=== PATIENT | male | born 1975 | race Caucasian/White ===

== ENCOUNTER 2018-02-27 08:43 | Outpatient (CLI) | payer BC, SELFPAY ==
[2018-02-27 09:55] LABS: Anion Gap 10.6 mmol/L (3-11); BUN 23 mg/dL (7-18); CO2 28.4 mmol/L (21.0-32.0); CREATININE 0.98 mg/dL (0.70-1.30); Calcium 9.3 mg/dL (8.5-10.1); Chloride 101 mmol/L (98-107); Glucose 92 mg/dL (70-100); Potassium 4.7 mmol/L (3.5-5.1); Sodium 140 mmol/L (136-145)
== END 2018-02-27 09:03 ==
PROVIDERS: PCP Internal Medicine; Visit Provider Internal Medicine
DX: I50.23 Acute on chronic systolic (congestive) heart failure (principal); I38 Endocarditis, valve unspecified
CPT/HCPCS: 36415; 80048

== ENCOUNTER 2020-01-02 12:59 | Outpatient (REF) | payer BC, SELFPAY ==
[2020-01-02 13:28] LABS: Hemoglobin A1C 5.9 % (3.8-5.6)
[2020-01-02 13:30] LABS: CREATININE 0.92 mg/dL (0.70-1.30); Calculated LDL 120 mg/dL (<100); Cholesterol 216 mg/dL (<200); HDL Cholesterol 33 mg/dL (40-60); Potassium 4.4 mmol/L (3.5-5.1); Triglyceride 316 mg/dL (<150)
== END 2020-01-02 13:19 ==
LOC: LBN 12:59
PROVIDERS: PCP Nurse Practitioner; Visit Provider Nurse Practitioner
DX: I10 Essential (primary) hypertension (principal); Z13.6 Encounter for screening for cardiovascular disorders; Z13.1 Encounter for screening for diabetes mellitus
CPT/HCPCS: 80061; 82565; 83036; 84132

== ENCOUNTER 2021-03-02 10:49 | Outpatient (REF) | payer BC, SELFPAY ==
[2021-03-02 15:21] LABS: Abs Immature Grans 0.04 10^3/uL (0.0-0.06); Absolute Basophil Count 0.04 10^3/uL (0.0-0.2); Absolute Eosinophil Count 0.16 10^3/uL (0.0-0.7); Absolute Lymphocyte Count 1.87 10^3/uL (1.2-3.4); Absolute Monocyte Count 0.44 10^3/uL (0.1-0.8); Absolute Neutrophil Count 4.66 10^3/uL (1.2-6.7); Anion Gap 7.1 mmol/L (3-11); BUN 13 mg/dL (7-18); Basophils % 0.6; CO2 27.9 mmol/L (21.0-32.0); CREATININE 0.8 mg/dL (0.70-1.30); Calcium 8.8 mg/dL (8.5-10.1); Chloride 104 mmol/L (98-107); Eosinophils % 2.2; Glucose 90 mg/dL (74-106); HCT 44.8 % (40.0-50.0); HGB 14.3 g/dL (13.5-17.5); Immature Grans % 0.6; Lymphocytes % 25.9; MCH 27.7 pg (27.0-33.0); MCHC 31.9 % (32.0-36.0); MCV 86.7 fL (80-95); MPV 12.3 fL (8.0-11.0); Monocytes % 6.1; Neutrophils % 64.6; Nucleated RBC 0 %; Platelet Count 216 10^3/uL (130-400); Potassium 4.3 mmol/L (3.5-5.1); RBC 5.17 10^6/uL (4.36-5.78); RDW 13.6 % (11.8-14.1); RDW-SD 43.8 fL; Sodium 139 mmol/L (136-145); WBC 7.21 10^3/uL (4.4-10.8)
[2021-03-02 16:22] LABS: Bilirubin Negative (Negative); Blood Large (Negative); Clarity Cloudy (Clear); Glucose Negative (Negative); Ketones Negative (Negative); Leukocyte Esterase Negative (Negative); Nitrite Negative (Negative); Urobilinogen 0.2 EU/dL (Up TO 0.2)
[2021-03-02 17:00] LABS: RBC >50 HPF (0-2)
[2021-03-02 17:01] LABS: C & S Indicated? Yes
== END 2021-03-02 10:50 | disposition home or self-care (01) ==
LOC: LBN 10:49
PROVIDERS: PCP Nurse Practitioner; Visit Provider Nurse Practitioner Family
DX: R31.9 Hematuria, unspecified (principal); I10 Essential (primary) hypertension; Z79.01 Long term (current) use of anticoagulants; Z95.2 Presence of prosthetic heart valve
CPT/HCPCS: 80048; 81003; 81015; 85025; 87086

== ENCOUNTER 2021-05-11 01:39 | Outpatient (CLI) | payer BC, SELFPAY ==
[2021-05-11 14:43] LABS: Hemoglobin A1C 5.4 % (<5.7)
[2021-05-11 15:01] LABS: CREATININE 0.8 mg/dL (0.70-1.30); Calculated LDL 152 mg/dL (<100); Cholesterol 230 mg/dL (<200); HDL Cholesterol 40 mg/dL (40-60); Potassium 4.5 mmol/L (3.5-5.1); Triglyceride 191 mg/dL (<150)
== END 2021-05-11 01:40 | disposition home or self-care (01) ==
LOC: LBO 01:39
PROVIDERS: PCP Nurse Practitioner; Visit Provider Nurse Practitioner
DX: I10 Essential (primary) hypertension (principal); R73.03 Prediabetes; E78.2 Mixed hyperlipidemia
CPT/HCPCS: 36415; 80061; 82565; 83036; 84132

== ENCOUNTER 2021-06-10 11:53 | Emergency (ER) | payer BC, SELFPAY ==
[2021-06-10 12:01] VITALS: BP 181/91; PULSE 63; RESP 18; TEMP 36.5; O2SAT 97
--- NOTE | 2021-06-10 12:30 | DI.RAD_ITS ---
Exam(s) XR ABDOMEN FLAT UPRIGHT EXAM: XR ABDOMEN FLAT UPRIGHT CLINICAL HISTORY: KNOWN RT URETEROLITHIASIS, PAIN. TECHNIQUE: 2D digital imaging was performed. COMPARISON: US US RENAL from 03/07/2021 FINDINGS: Supine and upright views the abdomen reveal no bowel obstruction or free air. Visualized lung bases are clear in this patient with sternotomy wires and prosthetic cardiac valve. There are no obvious r adiopaque calcifications seen over the kidneys nor along the course of the ureters. Regional bones a ppear unremarkable. IMPRESSION: DATA REPOSITORY: RADIATION DOSE DELIVERED:
[2021-06-10] MEDS: Normal Saline 1,000 ML 125 ML IV (12:35)
[2021-06-10 12:38] LABS: Bilirubin Negative (Negative); Blood Large (Negative); Clarity Sl Cloudy (Clear); Glucose Negative (Negative); Ketones Negative (Negative); Leukocyte Esterase Negative (Negative); Nitrite Negative (Negative); Urobilinogen 0.2 EU/dL (Up TO 0.2); pH 5.5 (5-8)
[2021-06-10] MEDS: Ketorolac 30 MG/ML VIAL IVP (12:41)
[2021-06-10 12:47] LABS: Bacteria Negative HPF (Negative); Epithelial Cells Rare HPF (Negative); RBC 20-50 HPF (0-2); WBC 0-2 HPF (0-5)
[2021-06-10 12:48] LABS: C & S Indicated? No; Casts Negative LPF (Negative); Crystals Rare Calcium Oxalate HPF (Negative); Mucus Negative (Negative)
[2021-06-10 12:58] LABS: Abs Immature Grans 0.04 10^3/uL (0.0-0.06); Absolute Basophil Count 0.04 10^3/uL (0.0-0.2); Absolute Eosinophil Count 0.17 10^3/uL (0.0-0.7); Absolute Lymphocyte Count 2.07 10^3/uL (1.2-3.4); Absolute Monocyte Count 0.61 10^3/uL (0.1-0.8); Absolute Neutrophil Count 6.03 10^3/uL (1.2-6.7); Basophils % 0.4; Eosinophils % 1.9; HCT 45.2 % (40.0-50.0); HGB 14.6 g/dL (13.5-17.5); Immature Grans % 0.4; Lymphocytes % 23.1; MCH 27.6 pg (27.0-33.0); MCHC 32.3 % (32.0-36.0); MCV 85.4 fL (80-95); MPV 11.6 fL (8.0-11.0); Monocytes % 6.8; Neutrophils % 67.4; Nucleated RBC 0 %; Platelet Count 217 10^3/uL (130-400); RBC 5.29 10^6/uL (4.36-5.78); RDW 13.4 % (11.8-14.1); RDW-SD 41.9 fL; WBC 8.96 10^3/uL (4.4-10.8)
[2021-06-10 13:12] LABS: ALT 30 U/L (16-63); AST 17 U/L (15-37); Albumin 4.3 g/dL (3.4-5.0); Alkaline Phosphatase 73 U/L (46-116); Anion Gap 10.5 mmol/L (3-11); BUN 15 mg/dL (7-18); Bilirubin, Total 0.8 mg/dL (0.2-1.0); CO2 27.5 mmol/L (21.0-32.0); CREATININE 1.2 mg/dL (0.70-1.30); Calcium 8.9 mg/dL (8.5-10.1); Chloride 100 mmol/L (98-107); Glucose 101 mg/dL (74-106); Potassium 3.6 mmol/L (3.5-5.1); Sodium 138 mmol/L (136-145); Total Protein 8.1 g/dL (6.4-8.2)
[2021-06-10 13:21] LABS: Source Nasal/Nares
--- NOTE | 2021-06-10 13:31 | ED.GENADUL_ITS ---
Discharge Plan Disposition Patient Disposition: HOME Condition: Stable Discharge Details Clinical Impression: Ureterolithiasis Primary Care Provider: Saima Alvarez ED Provider: Radames Livingston Home Meds and New Rx's Prescriptions: New tamsulosin [Flomax] 0.4 mg capsule 0.4 mg PO DAILY Qty: 7 RF: 0 Continued lisinopril 10 mg tablet 10 mg PO DAILY RF: 0 metoprolol succinate 50 mg cap,sprinkle,ER 24hr dose pack 50 mg PO DAILY RF: 0 aspirin [Adult Aspirin Regimen] 81 mg tablet,delayed release (DR/EC) 81 mg PO DAILY RF: 0 warfarin 2.5 mg tablet 2.5 mg PO DAILY Qty: 90 RF: 3 Discharge Instructions Additional Instructions: You have a 3 to 4 mm kidney stone at your ureterovesicular junction. This will likely pass within the couple of days. Please strain your urine and collect any stone that passes. Please take acetaminophen (tylenol) - 650mg every 6 hours by mouth as needed for pain. Please take ibuprofen 400 mg every 8 hours as needed for the next 3 days to control your pain. Please discontinue use of this medication as soon as possible as it may increase risk of bleeding in combination with your Coumadin. Please contact your primary care physician to arrange follow-up. Please follow-up with your urologist at [facility]. If you prefer to transition to [facility] urology, please call Dr. Boateng. Return to the ER immediately for any worsening or new concerning symptoms. Referrals: Ajay Boateng MD [ [facility] STAFF PHYSICIAN] - Saima Alvarez NP [Primary Care Provider] - Discharge Data Discharge Date/Time-TO BE ENTERED AT DEPARTURE: 06/10/21 15:13 Medical Decision Making 45-year-old male with history of renal stones, recently being worked up for hematuria, now with right-sided flank pain today, pain consistent with prior remote kidney stone passage. Patient is hemodynamically stable. Abdominal exam is benign. Urinalysis reviewed and hematuria noted. Patient noted that his urologist was planning to perform an abdominal x-ray to assess for renal stone. I obtained x-ray and it was reviewed and interpreted by radiology:Supine and upright views the abdomen reveal no bowel obstruction or free air. Visualized lung bases are clear in this patient with sternotomy wires and prosthetic cardiac valve. There are no obvious radiopaque calcifications seen over the kid neys nor along the course of the ureters. Regional bones appear unremarkable. Discussed results with the patient and decision made to proceed to renal CT of the abdomen pelvis which was reviewed and interpreted by radiology:IMPRESSION: 1. There is a 4 millimeter obstructing calculus in the lower right ureter/ureterovesical junction level with dilatation of the right collecting system above this level and perinephric fluid/streaking. There are no remaining calculi in the kidney. No findings in the opposite-left kidney. 2. No other significant findings in the abdomen pelvis 3. Visualized lung bases are clear. Patient was given Toradol IV and reassessed and had complete resolution of pain. All results were discussed with the patient. Plan will be for Flomax, short course of NSAID, follow-up with his urology. I did call and speak with the urologist on-call at [facility] [place] who was able to provide some history including recent abdominal MRI that did not reveal any concerning mass, urologist was in agreement with treatment plan discussed. There was initial concern that patient may require admission for pain control and a COVID test was performed and resulted as negative. HPI General Mode of arrival: ambulatory . Date/Time Provider Initiated Documentation: 06/10/21 12:01 . Limitations to Documentation: no limitations . Information obtained by: patient . HPI Narrative: 45-year-old male presents with chief complaint of right flank pain. Pain started this morning and has persisted. Pain is severe. Took some Tylenol prior to arrival which has not helped dramatically. Pain feels like prior kidney stone which she had years ago. No associated fever. Patient does note he had some hematuria over the past few months and has been followed by urology yet [facility] [place] and has had significant work-up including MRI, CT and ultrasound. Related Data Home Medications Medication Instructions Recorded Confirmed lisinopril 10 mg tablet 10 mg PO DAILY 02/27/18 05/06/21 metoprolol succinate 50 mg capsule 50 mg PO DAILY 02/27/18 05/06/21 jose antonio, ext. release 24 hr aspirin 81 mg tablet,delayed 81 mg PO DAILY 05/30/18 05/06/21 release warfarin 2.5 mg tablet 2.5 mg PO DAILY #90 tab 03/02/21 05/06/21 tamsulosin [Flomax] 0.4 mg PO DAILY #7 cap 06/10/21 Previous Rx's Medication Instructions Recorded warfarin 2.5 mg tablet 2.5 mg PO DAILY #90 tab 03/02/21 tamsulosin [Flomax] 0.4 mg PO DAILY #7 cap 06/10/21 Allergies Allergy/AdvReac Type Severity Reaction Status Date / Time No Known Allergies Allergy Verified 06/10/21 12:04 General Stated Complaint: FlankPain SILVIA: 3 Review of Systems All systems reviewed & are unremarkable except as noted in HPI and below Constitutional Constitutional: Denies fever(s) Gastrointestinal Gastrointestinal: Denies nausea and Denies vomiting PFSH All Active Problems Ureterolithiasis (Acute) Obesity (Chronic) Pre-diabetes (Acute) Hyperlipidemia (Acute) H/O aortic valve replacement (Acute) Hypertension (Acute) Chronic anticoagulation (Acute) for Aortic valve replacement, INR goal 2-3 Medical History Hematuria Kidney stone Morbid obesity Family History Mother , 65 Lung cancer Father Heart disease Social History Smoking/Tobacco Use Status: Former Tobacco Use tobacco type: cigarettes Tobacco: How many years used: 17 Quit status: has quit before Second Hand Exposure: Yes Smoking risk assessment performed?: Yes Alcohol Intake: former Drug use: Rarely Substance use type: marijuana Caregiver/Support person: No Household members: spouse and children Pets and animals: Yes Pets and animals: cat(s), dog(s) and bird(s) Sexually active: Yes Do you think of yourself as: straight/heterosexual Current gender identity: male What is your relationship status?: How often do you talk on the phone with friends or family?: once per week How often do you get together with friends or relatives?: once per week How often do you attend taoism or alevism services?: 1-3 times per year Do you belong to any clubs or organized social groups?: no Panel score (0-1 are the most socially isolated patients): 1 What type of physical activity do you participate in: walking, bicycling and weight lifting Duration: 30-45 minutes/day Frequency: 5-6 times per week Jenny/Confucianist: No preference Special jenny needs: No Seatbelt use: always Helmet use: Yes Helmet use: always Drive intox or ride w/intox mechanic driver: No Exam Const General: cooperative and no acute distress HENMT Head: normocephalic and atraumatic Mouth: moist mucous membranes Eyes Conjunctivae: normal conjunctivae Sclera: normal sclerae Neck Neck: trachea midline and supple Resp Auscultation: clear to auscultation bilaterally, no rales, no rhonchi and no wheezes Cardio Rate: regular rate and not tachycardic Rhythm: regular rhythm GI Palpation: soft, not firm, no guarding, no masses, not rigid and nontender Back/Spine/Pelvis Back: CVA tenderness (rt) Skin General skin exam: no rashes or lesions noted Neuro General: patient alert, patient awake, patient oriented x3 and tone normal Extrem General: no edema Psych Appearance: grossly normal Mental Status: mental status grossly normal Speech and Movement: speech and movement normal Course Vital Signs Vital signs: Vital Signs Temperature 36.5 C 06/10/21 12:01 Pulse 63 06/10/21 12:01 Respiratory Rate 18 06/10/21 12:01 Blood Pressure 181/91 H 06/10/21 12:01 Pulse Oximetry 97 06/10/21 12:01 Temperature 36.5 C 06/10/21 12:01 Temperature Source Skin 06/10/21 12:01 Pulse 63 06/10/21 12:01 Respiratory Rate 18 06/10/21 12:01 Respiratory Effort 06/10/21 12:04 Blood Pressure 181/91 H 06/10/21 12:01 Blood Pressure Position Sitting 06/10/21 12:01 Pulse Oximetry 97 06/10/21 12:01 Oxygen Delivery Method Room Air 06/10/21 12:01 Oxygen Flow Rate 0 06/10/21 12:01 Pain Level 9 06/10/21 12:34 Lab/Test Results Lab/Test Results: Laboratory Tests Range/Units 06/10/21 06/10/21 06/10/21 12:20 12:20 12:30 WBC (4.4-10.8) 10^3/uL 8.96 RBC (4.36-5.78) 10^6/uL 5.29 Hgb (13.5-17.5) g/dL 14.6 Hct (40.0-50.0) % 45.2 MCV (80-95) fL 85.4 MCH (27.0-33.0) pg 27.6 MCHC (32.0-36.0) % 32.3 RDW (11.8-14.1) % 13.4 Plt Count (130-400) 10^3/uL 217 MPV (8.0-11.0) fL 11.6 H Immature Gran % 0.4 Neutrophils % 67.4 Lymphocytes % 23.1 Monocytes % 6.8 Eosinophils % 1.9 Basophils % 0.4 Nucleated RBC % % 0 Absolute Neutrophils (1.2-6.7) 10^3/uL 6.03 Absolute Lymphocytes (1.2-3.4) 10^3/uL 2.07 Absolute Monocytes (0.1-0.8) 10^3/uL 0.61 Absolute Eosinophils (0.0-0.7) 10^3/uL 0.17 Absolute Basophils (0.0-0.2) 10^3/uL 0.04 Sodium (136-145) mmol/L 138 Potassium (3.5-5.1) mmol/L 3.6 Chloride (98-107) mmol/L 100 Carbon Dioxide (21.0-32.0) mmol/L 27.5 Anion Gap (3-11) mmol/L 10.5 BUN (7-18) mg/dL 15 Creatinine (0.70-1.30) mg/dL 1.2 Estimated GFR/1.73 m2 (mL/min/1.73m2) >= 60.00 Glucose (74-106) mg/dL 101 Calcium (8.5-10.1) mg/dL 8.9 Total Bilirubin (0.2-1.0) mg/dL 0.8 AST (15-37) U/L 17 ALT (16-63) U/L 30 Alkaline Phosphatase (46-116) U/L 73 Total Protein (6.4-8.2) g/dL 8.1 Albumin (3.4-5.0) g/dL 4.3 Urine Color (Yellow) Yellow Urine Clarity (Clear) Sl Cloudy Urine pH (5-8) 5.5 Ur Specific Cutler (1.005-1.025) 1.020 Urine Protein (Negative) mg/dL Negative Urine Ketones (Negative) mg/dL Negative Urine Blood (Negative) Large H Urine Nitrite (Negative) Negative Urine Bilirubin (Negative) Negative Urine Urobilinogen (Up TO 0.2) EU/dL 0.2 Ur Leukocyte Esterase (Negative) Negative Urine RBC (0-2) HPF 20-50 H Urine WBC (0-5) HPF 0-2 Ur Epithelial Cells (Negative) HPF Rare Urine Crystals (Negative) HPF Rare Calcium Oxalate Urine Bacteria (Negative) HPF Negative Urine Casts (Negative) LPF Negative Urine Mucus (Negative) Negative Ur Culture Indicated? No Urine Glucose (Negative) mg/dL Negative COVID-19 Source Range/Units 06/10/21 13:15 WBC (4.4-10.8) 10^3/uL RBC (4.36-5.78) 10^6/uL Hgb (13.5-17.5) g/dL Hct (40.0-50.0) % MCV (80-95) fL MCH (27.0-33.0) pg MCHC (32.0-36.0) % RDW (11.8-14.1) % Plt Count (130-400) 10^3/uL MPV (8.0-11.0) fL Immature Gran % Neutrophils % Lymphocytes % Monocytes % Eosinophils % Basophils % Nucleated RBC % % Absolute Neutrophils (1.2-6.7) 10^3/uL Absolute Lymphocytes (1.2-3.4) 10^3/uL Absolute Monocytes (0.1-0.8) 10^3/uL Absolute Eosinophils (0.0-0.7) 10^3/uL Absolute Basophils (0.0-0.2) 10^3/uL Sodium (136-145) mmol/L Potassium (3.5-5.1) mmol/L Chloride (98-107) mmol/L Carbon Dioxide (21.0-32.0) mmol/L Anion Gap (3-11) mmol/L BUN (7-18) mg/dL Creatinine (0.70-1.30) mg/dL Estimated GFR/1.73 m2 (mL/min/1.73m2) Glucose (74-106) mg/dL Calcium (8.5-10.1) mg/dL Total Bilirubin (0.2-1.0) mg/dL AST (15-37) U/L ALT (16-63) U/L Alkaline Phosphatase (46-116) U/L Total Protein (6.4-8.2) g/dL Albumin (3.4-5.0) g/dL Urine Color (Yellow) Urine Clarity (Clear) Urine pH (5-8) Ur Specific Cutler (1.005-1.025) Urine Protein (Negative) mg/dL Urine Ketones (Negative) mg/dL Urine Blood (Negative) Urine Nitrite (Negative) Urine Bilirubin (Negative) Urine Urobilinogen (Up TO 0.2) EU/dL Ur Leukocyte Esterase (Negative) Urine RBC (0-2) HPF Urine WBC (0-5) HPF Ur Epithelial Cells (Negative) HPF Urine Crystals (Negative) HPF Urine Bacteria (Negative) HPF Urine Casts (Negative) LPF Urine Mucus (Negative) Ur Culture Indicated? Urine Glucose (Negative) mg/dL COVID-19 Source Nasal/Nares
--- NOTE | 2021-06-10 14:05 | NUR.NOTE ---
Nursing Note:Pt to radiology & return, reports feeling much better, pain tolerable at this time, IVF infusing, cont. to monitor.
[2021-06-10 14:19] LABS: Lab Add On Test DONE
--- NOTE | 2021-06-10 14:25 | DI.CT_ITS ---
Exam(s) CT RENAL COLIC WO EXAM: CT RENAL COLIC WO CLINICAL HISTORY: RT FLANK PAIN. TECHNIQUE: Imaging Protocol: Axial computed tomography images with coronal and sagittal reformatted images were created and reviewed CONTRAST MATERIAL: Intravenous: none Oral: None COMPARISON: No exams were available for comparison FINDINGS: VISUALIZED LUNG BASES: No nodules nor pleural effusions evident. ABDOMEN: There is no ascites. LIVER: There are no obvious focal hepatic lesions evident of this noninfused study. GALLBLADDER/BILIARY: No obvious gallbladder pathology. CBD is not dilated. PANCREAS: No evidence of pancreatic mass nor dilatation of the pancreatic duct. SPLEEN: Spleen is not enlarged. No obvious intrasplenic lesions. ADRENALS: There are no significant adrenal masses. KIDNEYS:Left kidney is unremarkable. There is hydronephrosis of the right kidney and perinephric flu id. Hydroureter. The culprit 4 millimeter calculus is at the right ureterovesical junction. No kym culi within the bladder lumen. The bladder is not distended.. ABDOMINAL AORTA: Abdominal aorta is not enlarged. LYMPH NODES: There is no retroperitoneal nor paraaortic adenopathy. ABDOMINAL WALL: Fat containing umbilical hernia. No bowel loops therein. GI: There is no evidence of bowel obstruction, free air, nor abscess. PELVIS: LYMPH NODES: There is no intrapelvic nor inguinal adenopathy. GI: No evidence of appendicitis.No evidence of sigmoid diverticulitis. URINARY BLADDER: No calculi nor obvious masses evident REPRODUCTIVE: Prostate size is normal. OSSEOUS: No significant osseous lesions. IMPRESSION: 1. There is a 4 millimeter obstructing calculus in the lower right ureter/ureterovesical junction lev el with dilatation of the right collecting system above this level and perinephric fluid/streaking. There are no remaining calculi in the kidney. No findings in the opposite-left kidney. 2. No other significant findings in the abdomen pelvis 3. Visualized lung bases are clear. Report called by myself to the ER physician RADIATION DOSE DELIVERED: 1,202.46mGy.cm Total DLP DATA REPOSITORY: All CT scans at this facility are submitted to the National Radiology Data Registry (NRDR) Dose Index Registry (DIR) with the [employer] (ACR). RADIATION OPTIMIZATION: All CT scans at this facility use at least one of these dose optimization te chniques: automated exposure control; mA and/or kV adjustment per patient size (includes targeted exa ms where dose is matched to clinical indication); or iterative reconstruction.
[2021-06-10 14:27] LABS: Lipase 87 U/L (73-393)
[2021-06-10 15:00] VITALS: BP 124/74; PULSE 65; RESP 17; TEMP 36.7; O2SAT 97
[2021-06-10 15:42] LABS: COVID-19 PCR Negative (Negative)
== END 2021-06-10 15:13 | disposition home or self-care (01) ==
PROVIDERS: Emergency Provider Student in an Organized Health Care Education/Training Program; PCP Nurse Practitioner
DX: N20.1 Calculus of ureter (principal); Z87.442 Personal history of urinary calculi; R10.9 Unspecified abdominal pain; R31.9 Hematuria, unspecified; Z20.822 Contact with and (suspected) exposure to COVID-19
CPT/HCPCS: 36415; 80053; 83690; 87635; 96374; 99284; 74019; 74176; 81003; 81015; 85025; 99283; J1885

== ENCOUNTER 2021-06-16 09:08 | Outpatient (REF) | payer BC, SELFPAY ==
[2021-06-22 00:29] LABS: Source: Passed Stone
== END 2021-06-16 09:09 | disposition home or self-care (01) ==
LOC: LBN 09:08
PROVIDERS: PCP Nurse Practitioner; Visit Provider Urology
DX: N20.0 Calculus of kidney (principal)
CPT/HCPCS: 82365

== ENCOUNTER 2021-08-24 03:15 | Outpatient (CLI) | payer BC, SELFPAY ==
[2021-08-24 10:56] LABS: HCT 46.9 % (40.0-50.0); HGB 14.9 g/dL (13.5-17.5); MCH 26.9 pg (27.0-33.0); MCHC 31.8 % (32.0-36.0); MCV 84.7 fL (80-95); MPV 11.4 fL (8.0-11.0); Platelet Count 243 10^3/uL (130-400); RBC 5.54 10^6/uL (4.36-5.78); RDW 13.7 % (11.8-14.1); RDW-SD 42.5 fL; WBC 8.33 10^3/uL (4.4-10.8)
[2021-08-24 11:53] LABS: Anion Gap 6.6 mmol/L (3-11); BUN 19 mg/dL (7-18); CO2 28.4 mmol/L (21.0-32.0); CREATININE 0.9 mg/dL (0.70-1.30); Calcium 9.2 mg/dL (8.5-10.1); Chloride 106 mmol/L (98-107); Glucose 93 mg/dL (74-106); Potassium 4.4 mmol/L (3.5-5.1); Sodium 141 mmol/L (136-145)
== END 2021-08-24 03:16 | disposition home or self-care (01) ==
LOC: LBO 03:15
PROVIDERS: PCP Nurse Practitioner; Visit Provider Nurse Practitioner
DX: R06.02 Shortness of breath (principal); I10 Essential (primary) hypertension; Z79.01 Long term (current) use of anticoagulants
CPT/HCPCS: 36415; 80048; 85027

== ENCOUNTER 2021-08-25 01:25 | Outpatient (CLI) | payer BC, SELFPAY ==
--- NOTE | 2021-08-25 08:00 | ETT_ITS ---
APPROVED REPORT Exam: Exercise Treadmill Patient Location: Out-Patient Room/Bed: Stress Nurse: Teri Mckinnon RN Ordering Provider:MU BOWLES, Contact Number: [phone] BMI: 38.35 Baseline Rhythm: Sinus Rhythm Indications: Hypertension, h/o aortic valve replacement, chronic anticoagulation Medical History Medical History: Hypertension, hyperlipidemia, prediabetes, obesity, MAEVE, chronic anticoagulation Cardiac Medications: Metoprolol succinate, warfarin, lisinopril, aspirin Allergies: NKDA Cardiac Risk Factors: Hypertension, hyperlipidemia, prediabetes, obesity, smoker (former), CVD, famil y hx Previous Cardiac Procedures: Aortic valve replacement (2018) Pretest Chest Pain Characteristics: None Exercise History: Physically active Physical Disabilities: None Lung Sounds: Clear to auscultation Heart Sounds: Regular Stress Test Details Test: Exercise stress testing was performed using a Wilfrid protocol. Rest Stress HR Resting HR Supine: 69 bpm Max Heart Rate (APMHR): 173 bpm Resting HR Standin bpm Target HR (85% APMHR): 147 bpm Max HR Achieved: 171 bpm % of APMHR: 98 Recovery HR: 91 bpm HR response to stress: Normal HR response to stress Comment: Metoprolol succinate held for 48 hrs BP Resting BP Supine: 124/80 mmHg Resting BP Standin/86 mmHg Max BP: 188/86 mmHg Recovery BP: 132/88 mmHg BP response to stress: Normal blood pressure response to stress. ECG Resting ECG: Sinus Rhythm Ectopy: None Stress ECG: Sinus Tachycardia ST Change: Horizontal ST depression, Downsloping ST depression, Upsloping ST depression Lead(s): II, III, aVF Stage: [address] Deviation: 1.5 mm Arrhythmia: Rare PVC Recovery ECG: Sinus Rhythm Recovery ST Change: No significant ST segment changes noted Recovery Arrhythmia: Rare PAC, rare PVC, 4 beat run SVT Clinical Reason for Termination: Fatigue Stress Symptoms: General Fatigue, Dyspnea Exercise duration: 9 min12 sec Highest Stage Reached: Stage 4: 4.2 mph at 16% grade. Exercise capacity: 10.47 METs Alejandre Treadmill Score: 8.1 Rate Pressure Product: 40556 Stress ECG Conclusion 1. Resting electrocardiogram was within normal limits 2. Patient exercised on the Wilfrid protocol and completed a workload of 10.47 METS, stopping due to fa tigue 3. Normal heart rate and blood pressure response to exercise. Patient achieved 98% of predicted hear t rate for age 4. The electrocardiographic portion of the test was consistent with myocardial ischemia with inferior and anterolateral ST depression 5. Rare atrial and ventricular ectopics were noted 6. Suggest repeat with imaging if clinically indicated Alejandre Treadmill Score is 8.1 which is Low risk. Stress Test Summary STAGE Time (mins) Speed (mph) Grade (%) HR BP SYMPTOMS METS Supine 69 124/80 Standing 78 130/86 SpO2 98% 1 3 1.7 10 105 128/82 SpO2 94% 4.6 2 6 2.5 12 138 150/82 Mild SOB, SpO2 89% 7 3 9 3.4 14 167 162/86 Moderate SOB, SpO2 87% 10.2 4 12 4.2 16 169 SpO2 87% 12.9 1 min recovery 154 178/90 Moderate SOB, SpO2 89% 3 min recovery 103 188/86 Mild SOB, SpO2 96% 6 min recovery 91 132/88 SOB resolved, SpO2 97%
== END 2021-08-25 01:45 ==
PROVIDERS: PCP Nurse Practitioner; Visit Provider Nurse Practitioner
DX: Z95.2 Presence of prosthetic heart valve (principal); Z79.01 Long term (current) use of anticoagulants; I10 Essential (primary) hypertension
CPT/HCPCS: 93017

== ENCOUNTER 2023-07-19 08:54 | Emergency (ER) | payer BC, SELFPAY ==
[2023-07-19] VITALS (18 sets, daily range): BP systolic 138–165; BP diastolic 75–90; PULSE 79–104; RESP 18; TEMP 36.6; O2SAT 95–98
[2023-07-19 09:21] LABS: Bilirubin Negative (Negative); Blood Small (Negative); Clarity Clear (Clear); Glucose Negative (Negative); Ketones Trace mg/dL (Negative); Leukocyte Esterase Negative (Negative); Nitrite Negative (Negative); Specific Gravity 1.025 (1.005-1.025); Urobilinogen 0.2 mg/dL (Up to 0.2); pH 5.5 (5-8)
--- NOTE | 2023-07-19 09:30 | DI.CT_ITS ---
Exam(s) CT ABDOMEN PELVIS W EXAM: CT ABDOMEN PELVIS W CLINICAL HISTORY: Suprapubic abdominal pain, TTP LLQ TECHNIQUE: Imaging Protocol: Axial computed tomography images with coronal and sagittal reformatted images were created and reviewed. CONTRAST MATERIAL: Intravenous: Omnipaque 350 Contrast volume:100 mL Oral: No COMPARISON: CT CT RENAL COLIC WO from 06/10/2021 FINDINGS: ABDOMEN: Lung Bases: There is a small hiatal hernia. Liver: There is decreased attenuation of the liver consistent with fatty infiltration. No suspicious masses identified. Hepatomegaly. Portal, Superior Mesenteric, and Splenic Veins: Unremarkable. Gallbladder and Biliary Tract: No radiodense calculus or dilation. Pancreas: Normal density, no abnormal calcifications or inflammatory process. Spleen: Normal. Adrenals: No masses seen. Kidneys: Normal size, contour and axis. No radiodense stones or obstructive uropathy. There is a simp le cyst in the left kidney. No follow-up is recommended. Abdominal Aorta: Abdominal portion non-dilated. Atherosclerotic calcification is present. Bowel: There is bowel wall thickening seen in the mid sigmoid colon. There are diverticula seen in th e sigmoid colon. Pericolonic inflammation is present. There is no evidence of bowel obstruction. No o ther bowel wall thickening is seen. The stomach is incompletely distended limiting evaluation. Append ix is unremarkable. Peritoneal Cavity: No ascites, collection or mesenteric inflammatory response. No free air. Lymph Nodes: Within normal limits. Bones: Within normal limits for the patient's age. Soft Tissues: There is a small fat containing umbilical hernia. There is a midline upper fat containi ng abdominal wall hernia. There is a small fat containing right inguinal hernia. PELVIS: Bladder: Symmetric distention, no gross wall thickening. Reproductive Organs: Unremarkable as visualized. Lymph Nodes: Within normal limits. Bones: Within normal limits for the patient's age. IMPRESSION: 1. Findings consistent with sigmoid diverticulitis without evidence of abscess or free air 2. Findings were discussed with Rachel Plascencia on 04/14 at 11:18 a.m. on 07/19/2023. RADIATION DOSE DELIVERED: 1,732.53mGy.cm Total DLP DATA REPOSITORY: All CT scans at this facility are submitted to the National Radiology Data Registry (NRDR) Dose Index Registry (DIR) with the [employer] (ACR). RADIATION OPTIMIZATION: All CT scans at this facility use at least one of these dose optimization te chniques: automated exposure control; mA and/or kV adjustment per patient size (includes targeted exa ms where dose is matched to clinical indication); or iterative reconstruction.
--- OUTSIDE RECORDS SUMMARY | 2023-07-19 09:32 | XMS_ITS | Continuity of Care Document ---
Author Name Unknown Organization [facility] Address [address] [place] [id number] Care Team Providers Care Associate Genetics Professor Name Role Phone Carla Vo Primary Care Physician Encounter [facility] [id number] Date(s): 06/22/23 - 06/22/[address] Encounter Diagnosis bed bug exterminator (current) use of anticoagulants(Final) - Discharge Disposition: Home or Self Care Attending Physician: Saima Alvarez Admitting Physician: Saima Alvarez Referring Physician: Carla Vo Results Laboratory List Name Date PT 06/22/23 Most recent to oldest [Reference Range]: 1 Prothrombin Time [9.3-11.2 seconds] 30.0 seconds *HI* (06/22/23 8:25 AM) INR 3.0 *NA* (06/22/23 8:25 AM) Social History Social History Type Response Sex Male Patient Care team information Care Team Personnel Name: Carla Vo Position: No Access Member Role: Primary Care Physician Care Team Related Persons Name: FRANNY BA
--- NOTE | 2023-07-19 09:34 | W.ED.GENAD ---
Discharge Plan Disposition Patient Disposition: Home Discharge Details Clinical Impression: Sigmoid diverticulitis Primary Care Provider: Carla Vo ED Provider: Rachel Goins Home Meds and New Rx's Prescriptions: New amoxicillin-pot clavulanate 875-125 mg tablet 1 tab PO BID Qty: 18 0RF Continued lisinopril 10 mg tablet 10 mg PO DAILY tamsulosin 0.4 mg capsule 0.4 mg PO DAILY PRN (Reason: kidney stone) Qty: 30 2RF aspirin [Adult Aspirin Regimen] 81 mg tablet,delayed release (DR/EC) 81 mg PO DAILY warfarin 2.5 mg tablet 2.5 mg PO DAILY Qty: 360 3RF Protocol: Dose Management Condition: Sunday Dose/Route: 10 mg Instruction: 4 x 2.5 mg tablets Condition: Sunday Dose/Route: 10 mg Instruction: 4 x 2.5 mg tablets Condition: Sunday Dose/Route: 10 mg Instruction: 4 x 2.5 mg tablets Condition: Sunday Dose/Route: 10 mg Instruction: 4 x 2.5 mg tablets Condition: Dose/Route: 10 mg Instruction: 4 x 2.5 mg tablets Condition: Sunday Dose/Route: 10 mg Instruction: 4 x 2.5 mg tablets Condition: Sunday Dose/Route: 10 mg Instruction: 4 x 2.5 mg tablets Protocol Text: Adjustment Start Date: Sunday07/18/23 INR Value: 2.7 INR Date: 07/18/23 Recheck Date: 08/17/23 Rx Instructions: Take as directed Discharge Instructions Instructions: Diverticulitis (ED), Diverticulitis Diet (ED) Additional Instructions: Please call your primary care provider tomorrow morning to schedule follow-up appointment within the week (telehealth ok). I do recommend that you have a nursing visit to recheck your INR, as antibiotics may change your INR. Please discuss with your primary care provider having a colonoscopy done I encourage you to take antibiotics as prescribed for the full course. I recommend that you use an [id number] probiotic such as Culturelle or align (generic ok) to help prevent antibiotic associated diarrhea. Continue using acetaminophen 1000 mg 3 times a day. Your last dose of Tylenol was given at 1030 this morning (you can take another dose at 5 pm). Stay well-hydrated. Keep to a clear liquid diet for the first 2 days, then advance diet slowly as tolerated. Return to emergency care if you develop severe abdominal pain, uncontrollable vomiting, blood in stool, or if you are very worried and need to be rechecked again immediately. Referrals: Carla Vo NP [Primary Care Provider] - [facility] General Date/Time Provider Initiated Documentation: 07/19/23 09:18. HPI Narrative: Mt is a 47-year-old male with history of HLD, HTN, aortic valve replacement anticoagulation with warfarin, and history of kidney stones who presents to the emergency department today for evaluation of 2 days of lower abdominal pain. He reports that he woke up in the morning with the discomfort, describes it as a aching with occasional stabbing pains, rated 7/10. He reports that this is similar to previous kidney stones he has had in the past, but says that it is different because it has not progressed to 10 out of 10 pain since onset. This is accompanied by a feeling of tingling in his testicles. He denies fever/chills, nausea/vomiting, change in p.o. intake, other abdominal pain, change in bowel or bladder function, dysuria, hematuria, testicular swelling/redness/warmth/pain. He denies black/tarry stools or blood in his stools. He has had multiple kidney stones in the past, no surgical intervention required, says they have all passed on their own. He took Tylenol this morning with no improvement in symptoms. Related Data Home Medications Medication Instructions Recorded Confirmed lisinopril 10 mg tablet 10 mg PO DAILY 02/27/18 07/19/23 aspirin 81 mg tablet,delayed 81 mg PO DAILY 05/30/18 07/19/23 release (Adult Aspirin Regimen) warfarin 2.5 mg tablet 2.5 mg PO DAILY #360 tabs 11/13/22 07/19/23 tamsulosin 0.4 mg capsule 0.4 mg PO DAILY PRN kidney stone 07/18/23 07/19/23 #30 caps amoxicillin 875 mg-potassium 1 tab PO BID #18 tabs 07/19/23 clavulanate 125 mg tablet Previous Rx's Medication Instructions Recorded warfarin 2.5 mg tablet 2.5 mg PO DAILY #360 tabs 11/13/22 tamsulosin 0.4 mg capsule 0.4 mg PO DAILY PRN kidney stone 07/18/23 #30 caps amoxicillin 875 mg-potassium 1 tab PO BID #18 tabs 07/19/23 clavulanate 125 mg tablet Allergies Allergy/AdvReac Type Severity Reaction Status Date / Time No Known Allergies Allergy Verified 07/19/23 09:10 General Stated Complaint: Abd Prob SILVIA: 3 Review of Systems Narrative: See HPI Exam Const General: cooperative, healthy appearing, comfortable and no acute distress Resp Effort & Inspection: normal respiratory effort and able to speak in complete sentences Auscultation: clear to auscultation bilaterally Cardio Rate: regular rate Rhythm: regular rhythm GI Inspection: no visible herniation Palpation: soft, no guarding, no hernias, not rigid and tender in the LLQ (moderate), in the RLQ (mild) and suprapubicly (mild) Auscultation: normal bowel sounds Course Vital Signs Vital signs: Vital Signs Temperature 36.6 C 07/19/23 09:08 Pulse 104 H 07/19/23 09:08 Respiratory Rate 18 07/19/23 09:08 Blood Pressure 138/86 07/19/23 09:08 Pulse Oximetry 98 07/19/23 09:08 Temperature 36.6 C 07/19/23 09:11 Temperature Source Temporal Artery Scan 07/19/23 09:11 Pulse 104 H 07/19/23 09:11 Respiratory Rate 18 07/19/23 09:11 Respiratory Effort Normal, Non-Labored 07/19/23 09:11 Blood Pressure 138/86 07/19/23 09:11 Blood Pressure Position Sitting 07/19/23 09:11 Pulse Oximetry 98 07/19/23 09:11 Oxygen Delivery Method Room Air 07/19/23 09:11 Oxygen Flow Rate 0 07/19/23 09:11 Lab/Test Results Lab/Test Results: Laboratory Tests Range/Units 07/19/23 08:56 Urine Color (Yellow) Yellow Urine Clarity (Clear) Clear Urine pH (5-8) 5.5 Ur Specific Campbell (1.005-1.025) 1.025 Urine Protein (Neg-Trace) mg/dL 30 H Urine Ketones (Negative) mg/dL Trace H Urine Blood (Negative) Small H Urine Nitrite (Negative) Negative Urine Bilirubin (Negative) Negative Urine Urobilinogen (Up to 0.2) mg/dL 0.2 Ur Leukocyte Esterase (Negative) Negative Urine Glucose (Negative) mg/dL Negative Medical Decision Making Mt is a 47-year-old male with history of HLD, HTN, aortic valve replacement anticoagulation with warfarin, and history of kidney stones who presents to the emergency department today for evaluation of 2 days of lower abdominal pain. He reports that he woke up in the morning with the discomfort, describes it as a aching with occasional stabbing pains, rated 7/10. He reports that this is similar to previous kidney stones he has had in the past, but says that it is different because it has not progressed to 10 out of 10 pain since onset. This is accompanied by a feeling of tingling in his testicles. He denies fever/chills, nausea/vomiting, change in p.o. intake, other abdominal pain, change in bowel or bladder function, dysuria, hematuria, testicular swelling/redness/warmth/pain. He denies black/tarry stools or blood in his stools. He has had multiple kidney stones in the past, no surgical intervention required, says they have all passed on their own. He took Tylenol this morning with no improvement in symptoms. Physical exam remarkable for tenderness to palpation to left lower quadrant, as well as mild tenderness to palpation to suprapubic and right lower quadrant. Abdomen is soft, nondistended, normoactive bowel sounds with no rigidity or guarding. Patient is alert and interactive, in no acute distress. Easy work of breathing, lung sounds clear bilaterally. Normal heart sounds. No CVA tenderness. DDx includes but is not limited to: Nephrolithiasis, bladder calculi, UTI less likely, atypical diverticulitis or other colitis, hernia I independently interpreted the following tests: UA reassuring, small blood, 5-10 red blood cells. CBC remarkable for white cell count elevated at 12.67. CMP reassuring, only slightly elevated total bili 1.1. CT scan abdomen/pelvis obtained, significant for bowel wall thickening in the mid sigmoid and pericolonic inflammation consistent with sigmoid diverticulitis. While in the emergency department Mt received 1 L IV normal saline. 10:30: IV acetaminophen given for pain, as he reports pain is bumping up to 8 out of 10. Last dose of Tylenol was 5 AM this morning. Augmentin initiated for treatment of diverticulitis. Discussed findings and discharge instructions with patient, including antibiotic treatment of diverticulitis, importance of follow-up colonoscopy, clear liquid diet, and red flags indicate need to return to emergency care. He is agreement with plan of care. Imaging Data Radiologic Study: Radiologist's impression: Exam(s) CT ABDOMEN PELVIS W EXAM: CT ABDOMEN PELVIS W CLINICAL HISTORY: Suprapubic abdominal pain, TTP LLQ TECHNIQUE: Imaging Protocol: Axial computed tomography images with coronal and sagittal reformatted images were created and reviewed. CONTRAST MATERIAL: Intravenous: Omnipaque 350 Contrast volume:100 mL Oral: No COMPARISON: CT CT RENAL COLIC WO from 06/10/2021 FINDINGS: ABDOMEN: Lung Bases: There is a small hiatal hernia. Liver: There is decreased attenuation of the liver consistent with fatty infiltration. No suspicious masses identified. Hepatomegaly. Portal, Superior Mesenteric, and Splenic Veins: Unremarkable. Gallbladder and Biliary Tract: No radiodense calculus or dilation. Pancreas: Normal density, no abnormal calcifications or inflammatory process. Spleen: Normal. Adrenals: No masses seen. Kidneys: Normal size, contour and axis. No radiodense stones or obstructive uropathy. There is a simple cyst in the left kidney. No follow-up is recommended. Abdominal Aorta: Abdominal portion non-dilated. Atherosclerotic calcification is present. Bowel: There is bowel wall thickening seen in the mid sigmoid colon. There are diverticula seen in the sigmoid colon. Pericolonic inflammation is present. There is no evidence of bowel obstruction. No other bowel wall thickening is seen. The stomach is incompletely distended limiting evaluation. Appendix is unremarkable. Peritoneal Cavity: No ascites, collection or mesenteric inflammatory response. No free air. Lymph Nodes: Within normal limits. Bones: Within normal limits for the patient's age. Soft Tissues: There is a small fat containing umbilical hernia. There is a midline upper fat containing abdominal wall hernia. There is a small fat containing right inguinal hernia. PELVIS: Bladder: Symmetric distention, no gross wall thickening. Reproductive Organs: Unremarkable as visualized. Lymph Nodes: Within normal limits. Bones: Within normal limits for the patient's age. IMPRESSION: 1. Findings consistent with sigmoid diverticulitis without evidence of abscess or free air 2. Findings were discussed with Rachel Plascencia on 04/14 at 11:18 a.m. on 07/19/2023. Quality:SDOH Health Related Social Needs: No Data to Display PFS All Active Problems (Updated 07/19/23 @ 11:47 by Rachel Mora) Sigmoid diverticulitis (Acute) Sleep apnea (Acute) Obesity (Chronic) Pre-diabetes (Acute) Hyperlipidemia (Acute) H/O aortic valve replacement (Acute) Hypertension (Acute) Chronic anticoagulation (Acute) for Aortic valve replacement, INR goal 2-3 Medical History Hematuria Kidney stone Morbid obesity Family History Mother , 65 Lung cancer Father Heart disease Social History Smoking/Tobacco Use Status: Former Tobacco Use tobacco type: cigarettes Tobacco: How many years used: 17 Quit status: has quit before Second Hand Exposure: Yes Smoking risk assessment performed?: Yes Alcohol Intake: former Drug use: Rarely Substance use type: marijuana Caregiver/Support person: No Household members: spouse and children Housing: house Do you need help understanding health information?: Never Pets and animals: Yes Pets and animals: cat(s), dog(s) and bird(s) Sexually active: Yes Do you think of yourself as: straight/heterosexual Current gender identity: male What is your relationship status?: How often do you talk on the phone with friends or family?: once per week How often do you get together with friends or relatives?: once per week How often do you attend jainism or jehovah's witness services?: 1-3 times per year Do you belong to any clubs or organized social groups?: no Panel score (0-1 are the most socially isolated patients): 1 What type of physical activity do you participate in: walking, bicycling and weight lifting Duration: 30-45 minutes/day Frequency: 5-6 times per week Jenny/Restoration: No preference Special jenny needs: No Seatbelt use: always Helmet use: Yes Helmet use: always Drive intox or ride w/intox dedicated regional driver: No
[2023-07-19 09:37] LABS: WBC 0-2 HPF (0-5)
[2023-07-19 09:38] LABS: Crystals Negative HPF (Negative); Epithelial Cells Rare HPF (Negative); Mucus Trace (Negative); Other Cells Rare Renal (Negative)
[2023-07-19 09:39] LABS: C & S Indicated? No
[2023-07-19 09:47] LABS: Abs Immature Grans 0.06 10^3/uL (0.0-0.06); Absolute Basophil Count 0.06 10^3/uL (0.0-0.2); Absolute Lymphocyte Count 1.58 10^3/uL (1.2-3.4); Absolute Monocyte Count 0.98 10^3/uL (0.1-0.8); Basophils % 0.5; Eosinophils % 0.8; HCT 44.7 % (40.0-50.0); HGB 14.8 g/dL (13.5-17.5); Immature Grans % 0.5; Lymphocytes % 12.5; MCHC 33.1 % (32.0-36.0); MCV 81 fL (80-95); MPV 11.3 fL (8.0-11.0); Monocytes % 7.7; Platelet Count 210 10^3/uL (130-400); RBC 5.49 10^6/uL (4.36-5.78); RDW 14.1 % (11.8-14.1); RDW-SD 41.5 fL; WBC 12.67 10^3/uL (4.4-10.8)
[2023-07-19 09:48] LABS: Absolute Neutrophil Count 9.88 10^3/uL (1.2-6.7)
[2023-07-19 10:02] LABS: ALT 35 U/L (16-63); AST 17 U/L (15-37); Albumin 3.9 g/dL (3.4-5.0); Alkaline Phosphatase 74 U/L (46-116); BUN 14 mg/dL (7-18); Bilirubin, Total 1.1 mg/dL (0.2-1.0); CREATININE 0.9 mg/dL (0.70-1.30); Calcium 8.9 mg/dL (8.5-10.1); Chloride 102 mmol/L (98-107); Glucose 128 mg/dL (74-106); Lipase 21 U/L (16-77); Sodium 136 mmol/L (136-145)
[2023-07-19] MEDS: Normal Saline - Diluent 50 ML VIAL IJ (10:29)
[2023-07-19] MEDS: Omnipaque 350 MG/ML 100 ML BTL IJ (10:30)
[2023-07-19] MEDS: Normal Saline 1,000 ML 1000 ML IV (10:51)
[2023-07-19] MEDS: ACETAMINOPHEN 1,000 MG/100 ML BTL 400 MG IVPB (10:51)
[2023-07-19] MEDS: Amoxicillin 875/Clav. 125 TAB PO (11:50)
[2023-07-19 15:19] LABS: INR 3.4 (0.9-1.1); Prothrombin Time 30.8 sec (9.1-11.1)
--- NOTE | 2023-07-19 16:38 | NUR.NOTE ---
Patient called stating the prescription is not at the pharmacy. I called [facility] in [place], [place] and called in the prescription, per Dr. Lockhart. Nursing Note:
--- NOTE | 2023-07-19 17:01 | NUR.NOTE ---
Referral faxed to PCP for INR recheck to be seen Sunday. Nursing Note:
== END 2023-07-19 12:08 | disposition home or self-care (01) ==
PROVIDERS: Physician Assistant; Emergency Provider Nurse Practitioner Family; PCP Nurse Practitioner Family
DX: K57.32 Diverticulitis of large intestine without perforation or abscess without bleeding (principal); I10 Essential (primary) hypertension; E78.5 Hyperlipidemia, unspecified; Z79.82 Long term (current) use of aspirin; Z79.01 Long term (current) use of anticoagulants; Z95.2 Presence of prosthetic heart valve; F17.210 Nicotine dependence, cigarettes, uncomplicated
CPT/HCPCS: 80053; 83690; 96361; 96374; 99285; 74177; 81003; 81015; 85025; 85610; 99284; J0131; J3490